=== PATIENT | male | born 1960 | race Caucasian/White ===

== ENCOUNTER → 2021-07-24 | Outpatient (CLI) | payer BC, OTHER ==
[~2021-07-24] MED LIST: ASPIRIN325 PO; FISH OIL 1,001000 M2 PO; GLUCOSAMIN-CHO1 EACH PO; MUCINEX TA600 MG/TA2 PO; PRILOSEC20 MG PO; TENORMIN25 MG PO
== END ==
LOC: SJCVCIMAG 14:39
PROVIDERS: ATTEND Internal Medicine
DX: I07.1 Rheumatic tricuspid insufficiency (principal); R00.2 Palpitations; I47.2 Ventricular tachycardia; R94.31 Abnormal electrocardiogram [ECG] [EKG]; I45.10 Unspecified right bundle-branch block; E78.2 Mixed hyperlipidemia; Z79.899 Other long term (current) drug therapy